=== PATIENT | female | born 1990 | race Caucasian/White ===

== ENCOUNTER 2017-03-11 11:21 | Outpatient (CLI) | payer MEDICAID ==
[2017-03-11 12:41] LABS: APPEARANCE,URINE SLIGHTLY-CLOUDY; BILIRUBIN,URINE NEGATIVE (NEGATIVE); GLUCOSE, URINE NEGATIVE (NEGATIVE); KETONES,URINE NEGATIVE (NEGATIVE); LEUKOCYTE ESTERASE,URINE NEGATIVE (NEGATIVE); NITRITE,URINE NEGATIVE (NEGATIVE); PROTEIN,URINE NEGATIVE (NEGATIVE); URINE SPECIFIC GRAVITY 1.004; UROBILINOGEN,URINE NEGATIVE mg/dL (<2.0)
[2017-03-11 12:47] LABS: ABSOLUTE EOSINOPHILS # (AUTO) 0.1 10^3/uL (0.0-0.6); ABSOLUTE LYMPHOCYTES (AUTO) 1.6 10^3/uL (0.5-4.7); ABSOLUTE MONOCYTES (AUTO) 0.7 10^3/uL (0.1-1.4); ABSOLUTE NEUT (AUTO) 9.3 10^3/uL (1.7-8.2); BASOPHILS % (AUTO) 0.2 % (0-2); EOSINOPHILS % (AUTO) 0.5 % (0-6); HEMATOCRIT 35.6 % (36.0-47.0); HEMOGLOBIN 11.9 g/dL (12.0-15.5); HGB HCT DIFFERENCE 0.1; LYMPHOCYTES % (AUTO) 13.6 % (13-45); MEAN CORPUSCULAR HEMOGLOBIN 31.3 pg (27.0-33.4); MEAN CORPUSCULAR HGB CONC 33.5 g/dL (32.0-36.0); MEAN CORPUSCULAR VOLUME 94 fl (80-97); RED BLOOD COUNT 3.81 10^6/uL (3.72-5.28); RED CELL DISTRIBUTION WIDTH 13.2 % (11.5-14.0); SEGMENTED NEUTROPHILS % (AUTO) 79.7 % (42-78); WHITE BLOOD COUNT 11.7 10^3/uL (4.0-10.5)
[2017-03-11 13:03] LABS: ALANINE AMINOTRANSFERASE 30 U/L (9-52); ALBUMIN 3.5 g/dL (3.5-5.0); ALKALINE PHOSPHATASE 65 U/L (38-126); ANION GAP 9 (5-19); ASPARTATE AMINO TRANSFERASE 15 U/L (14-36); BILIRUBIN,DIRECT 0.2 mg/dL (0.0-0.4); BILIRUBIN,TOTAL 0.3 mg/dL (0.2-1.3); BLOOD UREA NITROGEN 6 mg/dL (7-20); CARBON DIOXIDE 22 mmol/L (22-30); CHLORIDE 106 mmol/L (98-107); GLUCOSE 92 mg/dL (75-110); POTASSIUM 4.1 mmol/L (3.6-5.0); SODIUM 137.4 mmol/L (137-145); TOTAL PROTEIN 6.3 g/dL (6.3-8.2)
[2017-03-11 13:11] LABS: URINE BARBITURATES SCREEN NEGATIVE; URINE METHADONE SCREEN NEGATIVE; URINE OPIATES LOW NEGATIVE; URINE PHENCYCLIDINE SCREEN NEGATIVE
== END 2017-03-11 15:45 | disposition home or self-care (01) ==
LOC: LC 11:21
PROVIDERS: ATTEND Student in an Organized Health Care Education/Training Program
PROC: 4A1HXCZ Monitoring of Products of Conception, Cardiac Rate, External Approach (ICD-10-PCS; principal; 2017-03-11)
DX: O36.8120 Decreased fetal movements, second trimester, not applicable or unspecified (principal); Z3A.20 20 weeks gestation of pregnancy
CPT/HCPCS: 36415; 80053; 80307; 81001; 85025

== ENCOUNTER 2017-06-23 11:37 | Outpatient (CLI) | payer MEDICAID ==
[2017-06-23 12:38] LABS: AMNISURE (ROM) NEGATIVE (NEGATIVE)
[2017-06-23 12:40] LABS: APPEARANCE,URINE CLEAR; BILIRUBIN,URINE NEGATIVE (NEGATIVE); GLUCOSE, URINE NEGATIVE (NEGATIVE); KETONES,URINE NEGATIVE (NEGATIVE); LEUKOCYTE ESTERASE,URINE NEGATIVE (NEGATIVE); NITRITE,URINE NEGATIVE (NEGATIVE); PROTEIN,URINE NEGATIVE (NEGATIVE); URINE SPECIFIC GRAVITY 1.008; UROBILINOGEN,URINE NEGATIVE mg/dL (<2.0)
[2017-06-23 12:49] LABS: URINE BARBITURATES SCREEN NEGATIVE; URINE METHADONE SCREEN NEGATIVE; URINE OPIATES LOW NEGATIVE; URINE PHENCYCLIDINE SCREEN NEGATIVE
== END 2017-06-23 12:47 | disposition home or self-care (01) ==
LOC: LC 11:37
PROVIDERS: ATTEND Obstetrics & Gynecology
PROC: 4A1HXCZ Monitoring of Products of Conception, Cardiac Rate, External Approach (ICD-10-PCS; principal; 2017-06-23)
DX: O47.03 False labor before 37 completed weeks of gestation, third trimester (principal); Z3A.35 35 weeks gestation of pregnancy
CPT/HCPCS: 59025; 80307; 81001; 84112

== ENCOUNTER 2017-07-24 03:27 | Outpatient (CLI) | payer MEDICAID ==
[2017-07-24] MEDS ORDERED: RINGERS SOLUTION,LACTATED 1,000 ML IV PRN (03:39)
--- NOTE | 2017-07-24 03:43 | Non Stress Test Report ---
Non Stress Test Datetime Report Generated by CPN: 07/24/2017 03:42 DEMOGRAPHIC EGA NST: 38.1 EGA NST: 35.1 INDICATION Indication for Study: Ordered by Provider; Other Indication for Study: Other Indication for Study (NST) Other: lc Indication for Study (NST) Other: labor check- ?rom URINE RESULTS Urine Protein, NST: Negative Urine Ketones - NST: Negative Urine Glucose - NST: Negative Urine Blood - NST: Negative MONITORING Monitor Explained: Monitor Explained; Test Explained; Patient Verbalized Understanding Monitor Explained: Monitor Explained; Test Explained; Patient Verbalized Understanding Time on Monitor: 07/14/2017 18:53 Time on Monitor: 06/23/2017 12:19 Time off Monitor: 07/14/2017 19:41 Time off Monitor: 06/23/2017 12:40 NST Duration: 48 NST Duration: 21 NST INTERVENTIONS NST Interventions: Reposition Patient NST Interventions: PO Hydration; Reposition Patient Physician Notified NST: Dr Ewing Physician Notified NST: Kemi LAURA CNM BABY A: [id number] BABY A Movement : Present Movement : Present Contraction Frequency : 2-5 Contraction Frequency : OCC FHR Baseline : 135 FHR Baseline : 130 (Annotations: Data stored by [facility] on behalf of user) Accelerations : 15X15 Accelerations : 15X15 Decelerations : None Decelerations : None Variability : Moderate 6-25bpm Variability : Moderate 6-25bpm NST Review: Meets Criteria for Reactive NST NST Review: Meets Criteria for Reactive NST NST Review and Verified By : Jamie Luong RN NST Review and Verified By : Kaz Beck RN NST Results: Reactive NST Results: Reactive NST REPORT Report Trigger: Send Report
[2017-07-24] MEDS ORDERED: ONDANSETRON 4 MG TAB.RAPDIS ONE ×2 (03:52→04:11)
[2017-07-24 04:03] LABS: APPEARANCE,URINE CLEAR; BILIRUBIN,URINE NEGATIVE (NEGATIVE); GLUCOSE, URINE NEGATIVE (NEGATIVE); KETONES,URINE NEGATIVE (NEGATIVE); LEUKOCYTE ESTERASE,URINE NEGATIVE (NEGATIVE); NITRITE,URINE NEGATIVE (NEGATIVE); PROTEIN,URINE NEGATIVE (NEGATIVE); URINE SPECIFIC GRAVITY 1.002; UROBILINOGEN,URINE NEGATIVE mg/dL (<2.0)
[2017-07-24] MEDS ORDERED: ONDANSETRON 4 MG TAB.RAPDIS PO ONE (04:15)
[2017-07-24 04:35] LABS: URINE BARBITURATES SCREEN NEGATIVE; URINE METHADONE SCREEN NEGATIVE; URINE OPIATES LOW NEGATIVE; URINE PHENCYCLIDINE SCREEN NEGATIVE
[2017-07-24] MEDS ORDERED: HYDROXYZINE PAMOATE 50 MG CAPSULE PO ONE (05:53)
[2017-07-24] MEDS ORDERED: HYDROXYZINE PAMOATE 50 MG CAPSULE ONE (05:57)
--- NOTE | 2017-07-24 06:16 | Non Stress Test Report ---
Non Stress Test Datetime Report Generated by CPN: 07/24/2017 06:16 DEMOGRAPHIC EGA NST: 39.4 INDICATION Indication for Study: Ordered by Provider Indication for Study (NST) Other: LC URINE RESULTS Urine Protein, NST: Negative Urine Ketones - NST: Negative Urine Glucose - NST: Negative Urine Blood - NST: Positive MONITORING Monitor Explained: Monitor Explained; Test Explained; Patient Verbalized Understanding Time on Monitor: 07/24/2017 03:43 Time off Monitor: 07/24/2017 05:45 NST Duration: 122 NST INTERVENTIONS NST Interventions: PO Hydration; IV Fluids; Other NST Interventions Other: popsicle Physician Notified NST: Dr. yu BABY A Movement : Present Contraction Frequency : 1.5-5 FHR Baseline : 135 Accelerations : 15X15 Decelerations : None Variability : Moderate 6-25bpm NST Review: Meets Criteria for Reactive NST NST Review and Verified By : Franklin Warren RN NST Results: Reactive NST REPORT Report Trigger: Send Report
== END 2017-07-24 06:03 | disposition home or self-care (01) ==
LOC: LC 03:27
PROVIDERS: ATTEND Obstetrics & Gynecology
PROC: 4A1HXCZ Monitoring of Products of Conception, Cardiac Rate, External Approach (ICD-10-PCS; principal; 2017-07-24)
DX: O47.1 False labor at or after 37 completed weeks of gestation (principal); Z3A.39 39 weeks gestation of pregnancy
CPT/HCPCS: 59025; 81005; 80307; S0119; J3490

== ENCOUNTER 2017-07-24 09:32 | Outpatient (CLI) | payer MEDICAID ==
[2017-07-24] MEDS ORDERED: ZOLPIDEM TARTRATE 5 MG TABLET ONE (10:48)
[2017-07-24] MEDS ORDERED: OXYCODONE-ACETAMINOPHEN 5-325 MG TABLET ONE (10:51)
[2017-07-24 10:55] LABS: APPEARANCE,URINE SLIGHTLY-CLOUDY; BILIRUBIN,URINE NEGATIVE (NEGATIVE); GLUCOSE, URINE NEGATIVE (NEGATIVE); KETONES,URINE NEGATIVE (NEGATIVE); LEUKOCYTE ESTERASE,URINE NEGATIVE (NEGATIVE); NITRITE,URINE NEGATIVE (NEGATIVE); PROTEIN,URINE NEGATIVE (NEGATIVE); URINE SPECIFIC GRAVITY 1.006; UROBILINOGEN,URINE NEGATIVE mg/dL (<2.0)
[2017-07-24 11:20] LABS: URINE BARBITURATES SCREEN NEGATIVE; URINE METHADONE SCREEN NEGATIVE; URINE OPIATES LOW NEGATIVE; URINE PHENCYCLIDINE SCREEN NEGATIVE
[2017-07-24] MEDS ORDERED: OXYCODONE-ACETAMINOPHEN 5-325 MG TABLET PO ONE (11:20)
[2017-07-24] MEDS ORDERED: ZOLPIDEM TARTRATE 5 MG TABLET PO ONE (11:20)
== END 2017-07-24 11:10 | disposition home or self-care (01) ==
LOC: LC 09:32
PROVIDERS: ATTEND Obstetrics & Gynecology
PROC: 4A1HXCZ Monitoring of Products of Conception, Cardiac Rate, External Approach (ICD-10-PCS; principal; 2017-07-24)
DX: O47.1 False labor at or after 37 completed weeks of gestation (principal); Z3A.39 39 weeks gestation of pregnancy
CPT/HCPCS: 59025; 81005; 80307; J3490

== ENCOUNTER 2017-07-24 20:10 | Inpatient (IN) | payer MEDICAID ==
[2017-07-24 20:33] LABS: APPEARANCE,URINE CLOUDY; BILIRUBIN,URINE NEGATIVE (NEGATIVE); GLUCOSE, URINE NEGATIVE (NEGATIVE); KETONES,URINE 20 mg/dL (NEGATIVE); LEUKOCYTE ESTERASE,URINE SMALL (NEGATIVE); NITRITE,URINE NEGATIVE (NEGATIVE); PROTEIN,URINE 30 mg/dL (NEGATIVE); URINE SPECIFIC GRAVITY 1.014; UROBILINOGEN,URINE NEGATIVE mg/dL (<2.0)
[2017-07-24 20:56] LABS: URINE BARBITURATES SCREEN NEGATIVE; URINE METHADONE SCREEN NEGATIVE; URINE OPIATES LOW NEGATIVE; URINE PHENCYCLIDINE SCREEN NEGATIVE
[2017-07-24] MEDS ORDERED: ZOLPIDEM TARTRATE 5 MG TABLET PO ONE (22:13)
[2017-07-24] MEDS ORDERED: OXYCODONE-ACETAMINOPHEN 5-325 MG TABLET PO ONE (22:13)
[2017-07-24] MEDS ORDERED: ZOLPIDEM TARTRATE 5 MG TABLET ONE (22:51)
[2017-07-24] MEDS ORDERED: OXYCODONE-ACETAMINOPHEN 5-325 MG TABLET ONE (22:52)
[2017-07-24] MEDS ORDERED: RINGERS SOLUTION,LACTATED 1,000 ML IV PRN (23:51)
[2017-07-25 00:27] LABS: ABSOLUTE LYMPHOCYTES (AUTO) 1.1 10^3/uL (0.5-4.7); ABSOLUTE MONOCYTES (AUTO) 0.7 10^3/uL (0.1-1.4); ABSOLUTE NEUT (AUTO) 12.3 10^3/uL (1.7-8.2); BASOPHILS % (AUTO) 0.1 % (0-2); HEMATOCRIT 33.5 % (36.0-47.0); HEMOGLOBIN 11.3 g/dL (12.0-15.5); HGB HCT DIFFERENCE 0.4; LYMPHOCYTES % (AUTO) 7.9 % (13-45); MEAN CORPUSCULAR HEMOGLOBIN 28.7 pg (27.0-33.4); MEAN CORPUSCULAR HGB CONC 33.6 g/dL (32.0-36.0); MEAN CORPUSCULAR VOLUME 86 fl (80-97); MONOCYTES % (AUTO) 5.2 % (3-13); RED BLOOD COUNT 3.92 10^6/uL (3.72-5.28); SEGMENTED NEUTROPHILS % (AUTO) 86.8 % (42-78); WHITE BLOOD COUNT 14.1 10^3/uL (4.0-10.5)
[2017-07-25] MEDS ORDERED: MISOPROSTOL 0.1 MG TABLET PO ONE (02:31)
[2017-07-25] MEDS ORDERED: MISOPROSTOL 0.1 MG TABLET ONE ×2 (02:38→07:56)
[2017-07-25] MEDS ORDERED: NALBUPHINE HCL INJ 10 MG/1 ML AMPULE ONE (07:43)
[2017-07-25] MEDS ORDERED: PROMETHAZINE HCL INJ 25 MG/1 ML VIAL ONE (07:43)
[2017-07-25] MEDS ORDERED: PHENYLEPHRINE HCL INJ/PF 10 MG/1 ML SDV ONE (12:23)
[2017-07-25] MEDS ORDERED: EPHEDRINE SULFATE INJ 50 MG/1 ML AMPULE ONE (12:23)
[2017-07-25] MEDS ORDERED: FENTANYL CITRATE INJ/PF 100 MCG/2 ML AMPUL ONE (12:23)
[2017-07-25] MEDS ORDERED: OXYTOCIN/NORMAL SALINE 20 UNIT/1,000 ML RTUINJ ONE ×2 (12:24→19:38)
[2017-07-25] MEDS ORDERED: BUPIVACAINE HCL 0.25 % INJ/PF (2.5 MG/1 ML) 30 ML VIAL ONE (12:24)
[2017-07-25] MEDS ORDERED: FENTANYL/BUPIVACAINE/NS/PF 200 MCG/100 ML RTUINJ EPI ONE ×2 (12:24→22:02)
[2017-07-25] MEDS ORDERED: CEFAZOLIN 2 GM/D5W RTU 2 GM/50 ML RTUPB IV ONE (19:17)
[2017-07-25] MEDS: CEFAZOLIN 2 GM/D5W RTU 2 GM/50 ML RTUPB IV SCH (19:28)
[2017-07-25] MEDS ORDERED: MISOPROSTOL 0.2 MG TABLET ONE (19:37)
[2017-07-25] MEDS ORDERED: LIDOCAINE 1% INJ-PF (10 MG/ML) 30 ML SDV ONE (19:38)
[2017-07-26] MEDS ORDERED: CEFAZOLIN 2 GM/D5W RTU 2 GM/50 ML RTUPB IV ONE (01:12)
[2017-07-26] MEDS ORDERED: CITRIC ACID/SODIUM CITRATE ORAL SOLN 15 ML UDCUP ONE (01:13)
[2017-07-26] MEDS: CEFAZOLIN 2 GM/D5W RTU 2 GM/50 ML RTUPB IV SCH (01:25)
[2017-07-26] MEDS ORDERED: LIDOCAINE 1.5%/EPINEPHRINE INJ-PF 30 ML SDV ONE ×2 (01:28→01:43)
[2017-07-26] MEDS ORDERED: SODIUM BICARBONATE 8.4% INJ 50 MEQ/50 ML DISP.SYRIN ONE ×2 (01:28→01:43)
[2017-07-26] MEDS ORDERED: OXYTOCIN/NORMAL SALINE 0 UNIT/0 ML RTUINJ ONE (01:31)
[2017-07-26] MEDS ORDERED: OXYTOCIN 10 UNIT/ML VIAL ONE (01:31)
[2017-07-26] MEDS ORDERED: MIDAZOLAM 2 MG/2 ML INJ ONE (01:31)
[2017-07-26] MEDS ORDERED: MORPHINE SULFATE 10 MG/ML INJ ONE (01:32)
[2017-07-26] MEDS ORDERED: ACETAMINOPHEN 100 ML IV ONE (02:33)
[2017-07-26] MEDS ORDERED: FENTANYL CITRATE INJ/PF 100 MCG/2 ML AMPUL ONE ×2 (03:00→04:06)
--- NOTE | 2017-07-26 03:13 | OPERATIVE REPORT E ---
Operative Report NAME: KARSON VILLANUEVA : 1990 AGE: 26Y DATE OF SURGERY: 07/26/2017 ROOM: LR200 PREOPERATIVE DIAGNOSES: 1. A 39 week uterine . 2. Chorioamnionitis. 3. Arrest of dilatation. POSTOPERATIVE DIAGNOSES: 1. A 39 week uterine . 2. Chorioamnionitis. 3. Arrest of dilatation. PROCEDURE PERFOMMED: Primary low transverse section. SURGEON: Alexander Caldwell D.O. CLAY DRY PRESS OPERATOR: None. ANESTHESIA: Epidural. ESTIMATED BLOOD LOSS: 600 mL. COMPLICAITONS: None. PATHOLOGY: Placenta. FINDINGS: 1. A viable female at 2:00 a.m. on 07/26/2017, Apgars 8 at one and 9 at five. 2. Normal appearing bilateral fallopian tubes and ovaries. DESCRIPTION OF PROCEDURE: The patient was taken to the operating room where she was placed in a dorsal supine position with a leftward tilt upon the operating room table. Her epidural anesthesia was then checked and found to be adequate. She was then prepped and draped in a normal sterile fashion. A scalpel was used to make a Pfannenstiel skin incision and the skin incision was carried down through the subcutaneous tissue to the layered fascia. The fascia was then incised in the midline. The fascial incision was then extended bilaterally using the Bovie cautery. The superior fascial edge was grasped with Angy clamps, elevated, and the rectus muscles dissected off sharply and bluntly. Attention was then turned to the inferior fascial edge which was grasped with Angy clamps, elevated, and the rectus muscles dissected off sharply and bluntly. Rectus muscles were then in the midline, peritoneum identified and entered bluntly with the surgeon's hand. The bladder blade was inserted. A scalpel was then used to make a low transverse hysterotomy incision. The was delivered through this incision without difficulty and atraumatically. The nose and mouth were suctioned. The cord was clamped and cut, and the infant was handed off to the waiting nurse practitioner. Cord blood was obtained. The placenta was then manually removed from the uterus. The uterus was exteriorized and cleared of all clots and debris. The hysterotomy incision was inspected and found to have 2 bilateral extensions of the hysterotomy incision downward down toward the cervix. The hysterotomy incision was repaired using 1-0 Vicryl in a running locking fashion in 2 layers. Following closure of the second layer, excellent hemostasis was noted. The uterus was then returned to the abdomen. Again, hysterotomy incision was reinspected and found to have excellent hemostasis. Rectus muscles were then reapproximated using 1-0 Vicryl interrupted sutures. The fascia was then closed using 1-0 Vicryl in a running non-locking fashion. The subcutaneous space was made hemostatic using Bovie cautery, and the skin was then closed with absorbable anisa, covered with an OpSite, and then with a presser dressing. At this point in time, the procedure was terminated. All sponge, lap, and needle counts were correct x2. The patient tolerated the procedure well. Patient was taken to recovery room in stable condition. DICTATING PHYSICIAN: Alexander Caldwell DO [id number] PHY#: [id number] ID: [id number] JOB#: [id number] ACCT: [id number] cc:Aleaxnder Caldwell D.O. >
[2017-07-26] MEDS ORDERED: KETOROLAC TROMETHAMINE INJ/PF 30 MG/1 ML SDV ONE (03:39)
--- NOTE | 2017-07-26 03:46 | Delivery Summary ---
Del Sum A-C Datetime Report Generated by CPN: 07/26/2017 03:46 DELIVERY PERSONNEL DELIVERY PERSONNEL: [id number] Delivery Doctor:: Alexander Caldwell DO Anesthesiologist:: Meenu Rossi MD MAIL DISTRIBUTOR:: Lamont Llanos CRNA Labor and Delivery Nurse:: Selena Abdullahi RNmedia producer Nurse:: Yu Dubon RN Operations Support Specialist:: Kae Julien RN Neonatal Nurse Practitioner:: GABBY Blanca Nursery Nurse:: Cheryl Alvarez RN MSN [place] Actor/NOODLE CATALYST MAKER: ST Ade [place] Actor/NOODLE CATALYST MAKER: Nayely Mathur, FINISHING TRIMMER MATERNAL INFORMATION Delivery Anesthesia: Epidural Medications After Delivery: Pitocin Bolus-Please Comment; Pitocin Drip 20 Units/1000ml NSS Maternal Complications: Chorioamnionitis LABOR SUMMARY EDC: 07/27/2017 00:00 No. Babies in Womb: 1 Attempted: No Labor Anesthesia: Epidural LABOR INFORMATION Reason for Induction: Not Applicable Cervical Ripening Agents: Cytotec @ 25 mcg Oxytocin: Augmentation Group B Beta Strep: negative Steroids Given: None Reason Steroids Not Administered: Not Applicable MEMBRANES Membranes Rupture Method: Spontaneous Rupture of Membranes: 07/24/2017 23:28 Length of Rupture (hr): 26.53 Amniotic Fluid Color: Light Meconium Amniotic Fluid Amount: Small Amniotic Fluid Odor: None STAGES OF LABOR Stage 3 hr: 0 Stage 3 min: 1 CSECTION DELIVERY Primary Indication: Secondary Arrest of Dilatation Secondary Indication: Other Other Secondary Indication: Chorio CSection Urgency: Non-Scheduled CSection Incidence: Primary Labor: Labor Elective: N/A CSection Incision: Lower Uterine Transverse Uterine Closure: Double-layer closure BABY A INFORMATION Infant Delivery Date/Time: 07/26/2017 02:00 Method of Delivery: Born in Route : No : N/A Forceps: N/A Vacuum Extraction: N/A Shoulder Dystocia : No PRESENTATION/POSITION BABY A Presentation: Cephalic Cephalic Presentation: Vertex Vertex Position: Left Occipital Anterior Breech Presentation: N/A PLACENTA INFORMATION BABY A Placenta Delivery Time : 07/26/2017 02:01 Placenta Method of Delivery: Spontaneous Placenta Status: Delivered SCORES BABY A Heart Rate 1 min: >100 bpm Resp Effort 1 min: Good Cry Reflex Irritability 1 min: Cough or Sneeze or Pulls Away Muscle Tone 1 min: Active Motion Color 1 min: Blue/Pale SCORE 1 MIN: 8 Heart Rate 5 min: >100 bpm Resp Effort 5 min: Good Cry Reflex Irritability 5 min: Cough or Sneeze or Pulls Away Muscle Tone 5 min: Active Motion Color 5 min: Body Virgil, Extremities Blue SCORE 5 MIN: 9 INFANT INFORMATION BABY A Gestational Age at Delivery: 39.6 Gestational Status: Full Term- 39- 40.6 Weeks Outcome : Liveborn Condition : Stable Infant Sex: Male IDENTIFICATION BABY A Verification Date/Time: 07/26/2017 02:10 ID Band Number: [id number] Mother's Name Verified: Yes Infant RN Verifying : Franklin Harrison RN Additional Verifying Personnel: Xiang Copeland RN WEIGHT/LENGTH BABY A Infant Birthweight (gm): 3543 Infant Weight (lb): 7 Weight (oz): 13 Infant Length (in): 20.50 Infant Length (cm): 52.07 CORD INFORMATION BABY A No. Cord Vessels: 3 Nuchal Cord : Around Neck x2, Loose Cord Blood Taken: Yes-For Storage (Mom's Blood type +) Infant Suction: Mouth; Nose ASSESSMENT BABY A Complications: Meconium Skin to Skin: No BABY B INFORMATION : N/A SIGNATURES Signature: with User ID: [email or web address]
[2017-07-26] MEDS ORDERED: RINGERS SOLUTION,LACTATED 1,000 ML IV PRN (04:11)
[2017-07-26] MEDS ORDERED: MEASLES,MUMPS&RUBELLA VACC/PF 0.5 ML VIAL SUBCUT PRN ×2 (04:11→13:00)
[2017-07-26] MEDS ORDERED: DIPH/PERTUSS(ACELL)/TETANUS VAC/PF 0.5 ML SYR (>=10YO) IM PRN ×2 (04:11→13:00)
[2017-07-26] MEDS ORDERED: PROMETHAZINE HCL INJ 25 MG/1 ML VIAL IV PRN (04:11)
[2017-07-26] MEDS ORDERED: OXYCODONE-ACETAMINOPHEN 5-325 MG TABLET PO PRN (04:11)
[2017-07-26] MEDS ORDERED: HYDROMORPHONE HCL INJ/PF 2 MG/ML AMPULE IV PRN (04:11)
[2017-07-26] MEDS ORDERED: OXYTOCIN/NORMAL SALINE 20,000 UNIT/1,000,000 ML RTUINJ IV PRN (04:11)
[2017-07-26] MEDS ORDERED: ACETAMINOPHEN 325 MG TABLET PO PRN (04:11)
--- NOTE | 2017-07-26 04:42 | Admission Physical ---
Datetime Report Generated by CPN: 07/26/2017 04:41 CURRENT ADMISSION Hx Assessment: The History has been Reviewed and is Current Chief Complaint: Uterine Contractions; Suspected Ruptured Membranes Chief Complaint Other: Painful contractions Indication for Induction: PROM Indication for Induction: Term, Intrauterine ; Ruptured Membranes Admit Plan: Admit to Unit; Initiate Labor Protocol ALLERGIES Medication Allergies: No Medication Allergies: No Known Allergies (07/25/2017) Medication Allergies: No Known Allergies (07/24/2017) Medication Allergies: No Known Allergies (06/23/2017) Medication Allergies: No Known Allergies (03/11/2017) Latex: No Latex Allergies OBSTETRICAL HISTORY EDC: 07/27/2017 00:00 : 1 Para: 0 Term: 0 : 0 SAB: 0 IAB: 0 Ectopic: 0 Livin Cesareans: 0 VBACs: 0 Multiple Births: 0 Gestational Diabetes: No Rh Sensitization: No Incompetent Cervix: No VIKAS: No Infertility: No ART Treatment: No Uterine Anomaly: No IUGR: No Hx Previous C/S: No Macrosomia: No Hx Loss/Stillborn: No PIH: No Hx : No Placenta Previa/Abruption: No Depression/PP Depression: No PTL/PROM: No Post Hemorrhage: No Current Procedures: Ultrasound; NST Obstetrical History Comments: G1: Current SEE RECORDS Alcohol: No Marijuana : No Cocaine: No Other Illicit Drugs: No Cigarettes: Never Smoker. [id number] MEDICAL HISTORY Diabetes: No Blood Transfusion: No Pulmonary Disease (Asthma, TB): No Breast Disease: No Hypertension: No Processes Chemical Design Engineer Surgery: No Heart Disease: No Hosp/Surgery: No Autoimmune Disorder: No Anesthetic Complications: No Kidney Disease: No Abnormal Pap Smear: Yes Neuro/Epilepsy: No Psychiatric Disorders: No Other Medical Diseases: No Hepatitis/Liver Disease: No Significant Family History: No Varicosities/Phlebitis: No Trauma/Violence : No Thyroid Dysfunction: No Medical History Comments: abn pap: LSIL, HPV, CIN1, rosacea INFECTIOUS HISTORY Gonorrhea: No Genital Herpes: No Chlamydia: No Tuberculosis: No Syphilis: No Hepatitis: No HIV/AIDS Exposure: No Rash or Viral Illness: No HPV: Yes PHYSICAL EXAM General: Normal HEENT: Normal Neurologic: Normal Heart: Normal Lungs: Normal Abdomen: Normal Extremities: Normal Pelvic Type: Not Done Physical Exam Comments: Abd: gravid and NT Patient apparently is very uncomfortable even when contractions are not registering on the monitor Vital Signs: Reviewed; Within Normal Limits VAGINAL EXAM Contraction Comments: irregular MEMBRANES Membranes: Ruptured Amniotic Fluid Color: Meconium, Light (Annotations: Data stored by [facility] on behalf of user) FETUS A EGA: 39.5 Monitoring: External US FHR- Baseline: 140s Variability: Moderate 6-25bpm Accelerations: 15X15 Decelerations: None FHR Category: Category I FHR Comments: Reasurring status Admit Comment: 26yo G1 @ 39w5d presents to L_D with complaints of painful contractions. Pt has been in and out of Ob triage with regular contractions noted to be close to spaced out. Pt has been given pain and sleep meds. Pt spontaneously ruptured while being monitored on L_D. Pt has had an uncomplicated otherwise. Pt reports good fm and no vaginal bleeding. PLANS FOR LABOR AND DELIVERY Labor and Delivery: Plan Pain Management: Natural; Medications; Epidural Feeding Preference: Breast Benefit of Breast Feed Discussed: Yes Circumcision: Yes INFORMED CONSENT Signature: with User ID: [email or web address]
[2017-07-26] MEDS ORDERED: KETOROLAC TROMETHAMINE INJ/PF 30 MG/1 ML SDV IV SCH (06:00)
[2017-07-26] MEDS: OXYCODONE-ACETAMINOPHEN 5-325 MG TABLET PO PRN ×3 (09:02→18:40)
[2017-07-26] MEDS ORDERED: PRENATAL VITAMIN W-O CA NO5/FE FUMARATE/FA CAPSULE PO SCH (10:00)
[2017-07-26] MEDS ORDERED: METOCLOPRAMIDE HCL INJ/PF 10 MG/2 ML SDV ONE (10:25)
[2017-07-26] MEDS ORDERED: PHENYLEPHRINE HCL INJ/PF 10 MG/1 ML SDV ONE (10:25)
[2017-07-26] MEDS ORDERED: ONDANSETRON HCL INJ/PF 4 MG/2 ML SDV ONE (10:25)
[2017-07-26] MEDS: DOCUSATE SODIUM 100 MG CAPSULE PO SCH ×2 (10:38→17:57)
[2017-07-26] MEDS: KETOROLAC TROMETHAMINE INJ/PF 30 MG/1 ML SDV IM SCH ×2 (13:05→22:41)
[2017-07-27] MEDS: OXYCODONE-ACETAMINOPHEN 5-325 MG TABLET PO PRN (01:45)
[2017-07-27] MEDS: IBUPROFEN 800 MG TABLET PO SCH ×4 (05:52→23:39)
[2017-07-27 07:01] LABS: HEMATOCRIT 30.1 % (36.0-47.0); HEMOGLOBIN 10.2 g/dL (12.0-15.5); HGB HCT DIFFERENCE 0.5; MEAN CORPUSCULAR HEMOGLOBIN 29.4 pg (27.0-33.4); MEAN CORPUSCULAR HGB CONC 33.9 g/dL (32.0-36.0); MEAN CORPUSCULAR VOLUME 87 fl (80-97); RED BLOOD COUNT 3.47 10^6/uL (3.72-5.28); RED CELL DISTRIBUTION WIDTH 14.8 % (11.5-14.0); WHITE BLOOD COUNT 12.1 10^3/uL (4.0-10.5)
[2017-07-27] MEDS ORDERED: PRENATAL VITAMIN W DHA CAPSULE PO ONE (09:16)
[2017-07-27] MEDS: DOCUSATE SODIUM 100 MG CAPSULE PO SCH ×2 (09:19→17:19)
[2017-07-27] MEDS: SIMETHICONE 80 MG TAB.CHEW PO PRN ×2 (09:19→17:16)
[2017-07-27] MEDS: PRENATAL VITAMIN W DHA CAPSULE PO SCH (10:02)
--- NOTE | 2017-07-27 10:03 | PDOC PROGRESS REPORT ---
Subjective-OB Subjective: Post Delivery Day: 1 26 year old. Denies any needs at this time, states lochia is stable, pain well controlled, voiding without difficulty. Physical Exam (OB) Vital Signs: Temp Pulse Resp BP Pulse Ox 98.3 F 74 16 113/73 97 07/27/17 08:29 07/27/17 08:29 07/27/17 08:29 07/27/17 08:29 07/27/17 08:29 Intake & Output 07/26/17 07/27/17 07/28/17 06:59 06:59 06:59 Output Total 1600 Balance -1600 - Dressing Removed: No Incision: Well Approximated - Bilateral Tubal Ligation Dressing Removed: No - Lochia Lochia Amount: Scant < 10 ml Lochia Color: Rubra/Red - Abdomen Description: Soft, Flat Hernia Present: No Fundal Description: Firm, Midline Fundal Height: u/u - u/2 Objective-Diagnostic Laboratory: 07/27/17 06:46 07/27/17 06:46 WBC 12.1 H RBC 3.47 L Hgb 10.2 L Hct 30.1 L MCV 87 MCH 29.4 MCHC 33.9 RDW 14.8 H Plt Count 147 L Assessment and Plan(PN) - Assessment and Plan (1) Status post primary low transverse section Is this a current diagnosis for this admission?: Yes Plan: routine postop care (2) Chorioamnionitis Qualifiers: Fetus number: single or unspecified fetus Is this a current diagnosis for this admission?: Yes Plan: abx (3) Acute blood loss anemia Is this a current diagnosis for this admission?: Yes Plan: ferrous sulfate increase dietary iron - Time Spent with Patient Time with patient: Less than 15 minutes Critical Time spent with patient: Less than 15 minutes Medications reviewed and adjusted accordingly: Yes - Disposition Anticipated Discharge: Home Within: within 24 hours
[2017-07-28] MEDS: SIMETHICONE 80 MG TAB.CHEW PO PRN (02:51)
[2017-07-28] MEDS: IBUPROFEN 800 MG TABLET PO SCH ×2 (05:17→12:23)
[2017-07-28] MEDS: PRENATAL VITAMIN W DHA CAPSULE PO SCH (09:32)
[2017-07-28] MEDS: DOCUSATE SODIUM 100 MG CAPSULE PO SCH (09:32)
--- NOTE | 2017-07-28 09:37 | PDOC DISCHARGE SUMMARY ---
Final Diagnosis Discharge Date: 07/28/17 - Final Diagnosis (1) Status post primary low transverse section Is this a current diagnosis for this admission?: Yes (2) Chorioamnionitis Is this a current diagnosis for this admission?: Yes (3) Acute blood loss anemia Is this a current diagnosis for this admission?: Yes Discharge Data - Discharge Medication Home Medications: No122/Iron/Folic Acid [ Multi Tablet] 1 tab PO DAILY 03/11/17 Docusate Sodium [Colace 100 mg Capsule] 100 mg PO BID #60 capsule 07/28/17 Ibuprofen [Motrin 800 mg Tablet] 800 mg PO Q6 #60 tablet 07/28/17 Oxycodone HCl/Acetaminophen [Percocet 5-325 mg Tablet] 2 tab PO Q4HP PRN #60 tablet 07/28/17 Reason(s) for Admission: Onset of Labor Procedures: NST Intrapartum Procedure(s): Spontaneous Vaginal Delivery - Data Baby 1 Male at 1 minute: 8 at 5 minutes: 9 Weight: 3543 kg Home with Mother: Yes Complications: No - Diagnosis Test Laboratory: Temp Pulse Resp BP Pulse Ox 99.1 F 68 16 122/68 96 07/28/17 08:02 07/28/17 08:02 07/28/17 08:02 07/28/17 08:02 07/28/17 08:02 07/24/17 07/25/17 07/27/17 20:19 00:03 06:46 RBC 3.92 3.47 L Hgb 11.3 L 10.2 L Hct 33.5 L 30.1 L Urine Opiates Screen NEGATIVE - Discharge information/Instructions Discharge Activity: Activity As Tolerated, Pelvic Rest, No tub bath Discharge Diet: Regular Disposition: HOME, SELF-CARE Follow up with: [facility] in: 4, Weeks
--- NOTE | 2017-07-28 10:33 | PDOC PROGRESS REPORT ---
Subjective-OB Subjective: Post Delivery Day: 2 26 year old. Denies any needs at this time, states lochia is stable , pain well controlled, voiding without difficulty. pt would like to stay if baby is unable to be discharged Physical Exam (OB) Vital Signs: Temp Pulse Resp BP Pulse Ox 99.1 F 68 16 122/68 96 07/28/17 08:02 07/28/17 08:02 07/28/17 08:02 07/28/17 08:02 07/28/17 08:02 Intake & Output 07/27/17 07/28/17 07/29/17 06:59 06:59 06:59 Intake Total 0 200 Output Total 1600 Balance -1600 200 Baby 1 Male 3543 kg - PIH/Pre-Eclampsia DTR's: 2 + Clonus: Negative Headache: Absent Epigastric Pain: No Visual Changes: No - Dressing Removed: No Incision: Dressing - Bilateral Tubal Ligation Dressing Removed: No - Lochia Lochia Amount: Scant < 10 ml Lochia Color: Rubra/Red - Abdomen Description: Soft, Round Hernia Present: No Fundal Description: Firm, Midline Fundal Height: u/u - u/2 Objective-Diagnostic Laboratory: 07/27/17 06:46 Assessment and Plan(PN) - Assessment and Plan (1) Status post primary low transverse section Is this a current diagnosis for this admission?: Yes Plan: routine postop care (2) Chorioamnionitis Qualifiers: Fetus number: single or unspecified fetus Is this a current diagnosis for this admission?: Yes Plan: abx (3) Acute blood loss anemia Is this a current diagnosis for this admission?: Yes Plan: ferrous sulfate increase dietary iron - Time Spent with Patient Time with patient: Less than 15 minutes Critical Time spent with patient: Less than 15 minutes Medications reviewed and adjusted accordingly: Yes - Disposition Anticipated Discharge: Home Within: within 24 hours
[2017-07-28 11:52] VITALS: BP 122/78
== END 2017-07-28 13:00 | disposition home or self-care (01) | DRG 765 ==
LOC: LC 20:10 → LR 23:34 → 2S 07-26 04:38
PROVIDERS: ADMIT Obstetrics & Gynecology; ATTEND Obstetrics & Gynecology
PROC: 4A1HXCZ Monitoring of Products of Conception, Cardiac Rate, External Approach (ICD-10-PCS; 2017-07-24)
PROC: 10D00Z1 Extraction of Products of Conception, Low, Open Approach (ICD-10-PCS; principal; 2017-07-26)
DX: O62.1 Secondary uterine inertia (principal); O41.1230 Chorioamnionitis, third trimester, not applicable or unspecified; O69.81X0 Labor and delivery complicated by cord around neck, without compression, not applicable or unspecified; O42.12 Full-term premature rupture of membranes, onset of labor more than 24 hours following rupture; O77.0 Labor and delivery complicated by meconium in amniotic fluid; Z37.0 Single live birth; Z3A.39 39 weeks gestation of pregnancy
CPT/HCPCS: 1961; 36415; 80307; 81005; 85025; 85027; 86592; 86850; 86900; 86901; 88307; 90715; 94799; J0131; J0690; J1885; J2250; J2270; J2300; J2370; J2405; J2550; J2590; J2765; J3010; J3490